=== PATIENT | female | born 1970 | race Caucasian/White ===

== ENCOUNTER 2019-08-11 03:57 | Observation (INO) | payer SELFPAY ==
[2019-08-11 04:22] LABS: Absolute Lymphocytes (CBC) 2.1 K/uL (0.7-4.9); Basophils % 0.8 % (0-1.3); Hematocrit 39.9 % (36.0-45.0); Lymphocytes % 14.7 % (15.3-44.8); MPV 8.5 fL (7.6-11.3); RBC Red Blood Cell Count 4.42 M/uL (3.86-4.86)
[2019-08-11] MEDS ORDERED: ONDANSETRON 4 MG/2 ML VIAL ONE ×3 (04:28→11:15)
[2019-08-11] MEDS ORDERED: KETOROLAC 30 MG/ML INJ ONE ×2 (04:28→11:15)
[2019-08-11] MEDS ORDERED: NA CHLORIDE 0.9% 1,000 ML ONE (04:28)
[2019-08-11 04:38] LABS: ALT/SGPT 23 U/L (12-78); AST/SGOT 15 U/L (15-37); Albumin 4.1 g/dL (3.4-5.0); Alkaline Phosphatase 152 U/L (45-117); BUN Blood Urea Nitrogen 11 mg/dL (7-18); Bicarbonate 27 mmol/L (21-32); Bilirubin Direct < 0.1 mg/dL (0-0.2); Bilirubin Total 0.4 mg/dL (0.2-1.0); Glucose Level 132 mg/dL (74-106); Potassium 3.8 mmol/L (3.5-5.1); Protein, Total 8.5 g/dL (6.4-8.2); Sodium Level 140 mmol/L (136-145)
[2019-08-11] MEDS ORDERED: FENTANYL CITR 100 MCG/2 ML ONE ×3 (05:26→11:11)
--- NOTE | 2019-08-11 07:18 | RAD REPORT ---
EXAM DESCRIPTION: CT - Abdomen Pelvis W Contrast - 08/11/2019 5:10 am CLINICAL HISTORY: Abdominal pain COMPARISON: none. TECHNIQUE: Computed axial tomography of the abdomen pelvis was obtained. 100 cc Isovue-300 was admin istered intravenously. Oral contrast was not requested which limits evaluation of bowel. All CT scans are performed using dose optimization technique as appropriate and may include automated exposure control or mA/KV adjustment according to patient size. FINDINGS: The liver contains a couple of tiny low-density lesions too small to characterize but prob ably cysts Spleen contains small subcentimeter low-density lesions. Pancreas, left adrenal and kidneys unremarkable. . 20 millimeter right adrenal lesion The gallbladder is distended containing calculi. One is lodged within the gallbladder neck. Gallbladd er wall probably is mildly thickened. There is no evidence of diverticulitis. Normal appendix. Hysterectomy IMPRESSION: Cholelithiasis with gallbladder distention. One stone is lodged within the gallbladder n stormy. Probable cholecystitis Multiple splenic lesions varying in size from a few millimeters to is 12 millimeters. These do not re present simple cysts. These may represent hemangiomas. Metastases can have this appearance as well bu t probably less likely. . Ultrasound is recommended. A 20 millimeter right adrenal lesion. Adenoma is considered most likely. A metastasis is another cons ideration. Nonemergent MRI usually can differentiate between the 2
[2019-08-11] MEDS ORDERED: PIPER/TAZO/NS 3.375gm 3.375 GM/100 ML BAG ONE (08:10)
--- NOTE | 2019-08-11 08:15 | ER ---
Nurse's Notes [facility] Name: Jennifer George Age: 48 yrs Sex: Female : 1970 Arrival Date: 08/11/2019 Time: 03:59 Bed 6 Private MD: Diagnosis: Abdominal tenderness;Cholelithiasis;Cholecystitis;Elevated white blood cell count Presentation: 08/10 04:06 Chief complaint: Patient states: Pt reports she started having right upper quadrant ea pain last night that radiated to back. Pt reports the pain worsened and feels like she is unable to pass gas. Coronavirus screen: Proceed with normal triage. Ebola Screen: No symptoms or risks identified at this time. Initial Sepsis Screen: Does the patient meet any 2 criteria? No. Patient's initial sepsis screen is negative. Does the patient have a suspected source of infection? No. Patient's initial sepsis screen is negative. Risk Assessment: Do you want to hurt yourself or someone else? Patient reports no desire to harm self or others. Onset of symptoms was August 11, 2019. 04:06 Method Of Arrival: Ambulatory ea 04:06 Acuity: SARABJIT 3 ea Triage Assessment: 04:10 General: Appears uncomfortable, Behavior is restless. Pain: Complains of pain in right ea upper quadrant. Neuro: Level of Consciousness is awake, alert, obeys commands, Oriented to person, place, time, situation. Cardiovascular: Patient's skin is warm and dry. Respiratory: Airway is patent Respiratory effort is even, unlabored, Respiratory pattern is regular, symmetrical. GI: Reports upper abdominal pain, bloating. 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 - Social history:: Smoking status: Patient denies any tobacco usage or history of. Screenin:08 Abuse screen: Denies threats or abuse. Nutritional screening: No deficits noted. ea Tuberculosis screening: No symptoms or risk factors identified. Fall Risk None identified. Assessment: 05:25 Reassessment: Patient and/or family updated on plan of care and expected duration. Pain rv level reassessed. Patient is alert, oriented x 3, equal unlabored respirations, skin warm/dry/pink. Patient denies pain at this time. Patient states feeling better. GI: Bowel sounds present X 4 quads. Abd is soft and non tender X 4 quads. 05:25 Reassessment: awaiting CT scan report. updated on the test results. rv 05:43 Reassessment: Patient and/or family updated on plan of care and expected duration. Pain ea level reassessed. Patient is alert, oriented x 3, equal unlabored respirations, skin warm/dry/pink. Pt reports she is feeling better. 06:02 Reassessment: hu from CT reports that technicians are working to get the reading for sg the CT scan, notified, pt updated on POC. 07:30 Reassessment: Patient appears in no apparent distress at this time. Patient and/or ph family updated on plan of care and expected duration. Pain level reassessed. Patient is alert, oriented x 3, equal unlabored respirations, skin warm/dry/pink. 08:58 Reassessment: Patient appears in no apparent distress at this time. Patient and/or ph family updated on plan of care and expected duration. Pain level reassessed. Patient is alert, oriented x 3, equal unlabored respirations, skin warm/dry/pink. 10:14 Reassessment: Patient appears in no apparent distress at this time. Patient and/or ph family updated on plan of care and expected duration. Pain level reassessed. Patient is alert, oriented x 3, equal unlabored respirations, skin warm/dry/pink. Report given to Brooke Cruz RN, pt taken to OR via wheelchair. Vital Signs: 04:06 BP 157 / 113; Pulse 101; Resp 20; Temp 98.9; Pulse Ox 98% on R/A; Weight 68.04 kg; ea Height 5 ft. 4 in. (162.56 cm); 05:25 BP 117 / 64; Pulse 90; Resp 16; Pulse Ox 94% ; Pain 0/10; rv 07:31 BP 110 / 76; Pulse 76; Resp 16 S; Pulse Ox 95% on R/A; em 08:52 BP 115 / 76; Pulse 81; Resp 18; Pulse Ox 98% on R/A; ph 10:15 BP 118 / 78; Pulse 84; Resp 18; Temp 98.0; Pulse Ox 99% on R/A; ph 04:06 Body Mass Index 25.75 (68.04 kg, 162.56 cm) ea ED Course: 03:59 Patient arrived in ED. ag3 03:59 Gonzalez Barnes MD is Attending Physician. kdr 04:00 Sebastian Sorensen, RN is Primary Nurse. rv 04:08 Triage completed. ea 04:09 Patient has correct armband on for positive identification. Bed in low position. Call ea light in reach. 04:09 Arm band placed on right wrist. Patient placed in an exam room, on a stretcher, on ea pulse oximetry. 04:17 Inserted saline lock: 20 gauge in right antecubital area, using aseptic technique. oe Blood collected. 05:10 CT Abd/Pelvis - IV Contrast Only In Process Unspecified. EDMS 07:53 Attending Physician role handed off by Gonzalez Barnes MD maty 07:53 Jose G Swift MD is Attending Physician. maty 08:14 Aiden Garcia MD is Hospitalizing Provider. maty 08:52 No provider procedures requiring assistance completed. Patient admitted, IV remains in ph place. Administered Medications: 04:26 Drug: NS 0.9% 1000 ml Route: IV; Rate: 1 bolus; Site: right antecubital; rv 07:15 Follow up: Response: No adverse reaction; IV Status: Completed infusion; IV Intake: ph 1000ml 04:26 Drug: TORadol - Ketorolac 15 mg Route: IVP; Site: right antecubital; rv 10:16 Follow up: Response: No adverse reaction ph 04:26 Drug: Zofran (Ondansetron) 4 mg Route: IVP; Site: right antecubital; rv 10:16 Follow up: Response: No adverse reaction ph 08:47 Drug: Zofran (Ondansetron) 4 mg Route: IVP; Site: right antecubital; ph 10:16 Follow up: Response: No adverse reaction ph 08:49 Drug: fentaNYL (PF) 50 mcg Route: IVP; Site: right antecubital; ph 10:16 Follow up: Response: No adverse reaction; Pain is decreased; RASS: Drowsy (-1) ph 08:51 Drug: Zosyn 3.375 grams Route: IVPB; Infused Over: 60 mins; Site: right antecubital; ph 09:55 Follow up: Response: No adverse reaction; IV Status: Completed infusion ph Intake: 07:15 IV: 1000ml; Total: 1000ml. ph Outcome: 08:15 Decision to Hospitalize by Provider. maty 10:15 Admitted to OR accompanied by nurse, via wheelchair, with chart. ph 10:15 Condition: stable 10:15 Instructed on the need for admit. 10:17 Patient left the ED. ph Signatures: Dispatcher [employer] EDKiel Addison, RN Jose G Russell MD MD cha Rittger, Kevin, MD MD kdr Munoz, Edgar RN Jessica Handy RN Waldemar Stark ph, Elena, RN Sebastian Harris ea, RN Ananya Roberts
--- NOTE | 2019-08-11 08:16 | EDPHYS ---
Physician Documentation [facility] Name: Jennifer George Age: 48 yrs Sex: Female : 1970 Arrival Date: 08/11/2019 Time: 03:59 Bed 6 Private MD: ED Physician Jose G Swift HPI: 08/10 05:09 This 48 yrs old Female presents to ER via Ambulatory with complaints of kdr Abdominal Pain. 05:09 The patient presents with abdominal pain in the epigastric area, in the upper abdomen. kdr Onset: The symptoms/episode began/occurred gradually, 1 month(s) ago. The symptoms radiate to Associated signs and symptoms: Pertinent positives: nausea, Pertinent negatives: anorexia, blood in stools, palpitations, shortness of breath, vaginal discharge, vomiting, vomiting blood. The symptoms are described as achy, burning, crampy, intermittent, vague, waxing/waning. Severity of pain: At its worst the pain was moderate in the emergency department the pain has improved mildly. The patient has not experienced similar symptoms in the past. The patient has not recently seen a physician. 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 - Social history:: Smoking status: Patient denies any tobacco usage or history of. ROS: 05:09 Constitutional: Negative for fever, chills, and weight loss, Eyes: Negative for injury, kdr pain, redness, and discharge, ENT: Negative for injury, pain, and discharge, Neck: Negative for injury, pain, and swelling, Cardiovascular: Negative for chest pain, palpitations, and edema, Respiratory: Negative for shortness of breath, cough, wheezing, and pleuritic chest pain, Back: Negative for injury and pain, : Negative for injury, bleeding, discharge, and swelling, MS/Extremity: Negative for injury and deformity, Skin: Negative for injury, rash, and discoloration, Neuro: Negative for headache, weakness, numbness, tingling, and seizure activity. Psych: Negative for depression, anxiety, suicide ideation, homicidal ideation, and hallucinations, Allergy/Immunology: Negative for hives, rash, and allergies, Endocrine: Negative for neck swelling, polydipsia, polyuria, polyphagia, and marked weight changes, Hematologic/Lymphatic: Negative for swollen nodes, abnormal bleeding, and unusual bruising. 05:09 Respiratory: Positive for The patient is chronically congested and feels that this has not changes for the better or worse.. Exam: 05:09 Constitutional: This is a well developed, well nourished patient who is awake, alert, kdr and in no acute distress. Head/Face: Normocephalic, atraumatic. Eyes: Pupils equal round and reactive to light, extra-ocular motions intact. Lids and lashes normal. Conjunctiva and sclera are non-icteric and not injected. Cornea within normal limits. Periorbital areas with no swelling, redness, or edema. Neck: Trachea midline, no thyromegaly or masses palpated, and no cervical lymphadenopathy. Supple, full range of motion without nuchal rigidity, or vertebral point tenderness. No Meningismus. Chest/axilla: Normal chest wall appearance and motion. Nontender with no deformity. No lesions are appreciated. Cardiovascular: Regular rate and rhythm with a normal S1 and S2. No gallops, murmurs, or rubs. Normal PMI, no JVD. No pulse deficits. Respiratory: Lungs have equal breath sounds bilaterally, clear to auscultation and percussion. No rales, rhonchi or wheezes noted. No increased work of breathing, no retractions or nasal flaring. Back: No spinal tenderness. No costovertebral tenderness. Full range of motion. Skin: Warm, dry with normal turgor. Normal color with no rashes, no lesions, and no evidence of cellulitis. MS/ Extremity: Pulses equal, no cyanosis. Neurovascular intact. Full, normal range of motion. Neuro: Awake and alert, GCS 15, oriented to person, place, time, and situation. Cranial nerves II-XII grossly intact. Motor strength 5/5 in all extremities. Sensory grossly intact. Cerebellar exam normal. Normal gait. Psych: Awake, alert, with orientation to person, place and time. Behavior, mood, and affect are within normal limits. 05:09 Abdomen/GI: Inspection: abdomen appears normal, Bowel sounds: active, diminished, in all quadrants, Palpation: soft, mild abdominal tenderness, in the epigastric area, right upper quadrant and left upper quadrant, rebound tenderness, voluntary guarding, involuntary guarding. 06:14 ECG was reviewed by the Attending Physician. [facility] Vital Signs: 04:06 BP 157 / 113; Pulse 101; Resp 20; Temp 98.9; Pulse Ox 98% on R/A; Weight 68.04 kg; ea Height 5 ft. 4 in. (162.56 cm); 05:25 BP 117 / 64; Pulse 90; Resp 16; Pulse Ox 94% ; Pain 0/10; rv 07:31 BP 110 / 76; Pulse 76; Resp 16 S; Pulse Ox 95% on R/A; em 08:52 BP 115 / 76; Pulse 81; Resp 18; Pulse Ox 98% on R/A; ph 10:15 BP 118 / 78; Pulse 84; Resp 18; Temp 98.0; Pulse Ox 99% on R/A; ph 04:06 Body Mass Index 25.75 (68.04 kg, 162.56 cm) MDM: 07:54 Patient medically screened. [facility] 08:12 Data reviewed: vital signs, nurses notes, lab test result(s), EKG, radiologic studies, maty plain films. 08/10 04:00 Order name: Basic Metabolic Panel; Complete Time: 05:18 kdr 08/10 04:00 Order name: CBC with Diff; Complete Time: 05:18 [facility] 08/10 04:00 Order name: Creatinine for Radiology; Complete Time: 05:18 kdr 08/10 04:00 Order name: Hepatic Function; Complete Time: 05:18 [facility] 08/10 04:20 Order name: Lipase; Complete Time: 05:18 [facility] 08/10 05:18 Order name: Troponin (emerg Dept Use Only); Complete Time: 06:14 kdr 08/10 04:20 Order name: CT Abd/Pelvis - IV Contrast Only; Complete Time: 07:54 [facility] 08/10 08:22 Order name: Urine Dipstick--Ancillary (enter results) eb 08/10 04:00 Order name: IV Saline Lock; Complete Time: 04:13 kdr 08/10 04:00 Order name: Labs collected and sent; Complete Time: 04:13 [facility] 08/10 05:18 Order name: EKG Strip; Complete Time: 05:37 [facility] 08/10 07:55 Order name: NPO; Complete Time: 07:56 [facility] 08/10 08:20 Order name: Urine Dipstick-Ancillary (obtain specimen); Complete Time: 08:20 em EC:14 Rate is 83 beats/min. Rhythm is regular, Normal Sinus Rhythm with No ectopy. QRS [place] kdr is Normal. AL interval is normal. QRS interval is normal. QT interval is normal. Clinical impression: NSR w/ Non-specific ST/T Changes. Administered Medications: 04: Drug: NS 0.9% 1000 ml Route: IV; Rate: 1 bolus; Site: right antecubital; rv 07:15 Follow up: Response: No adverse reaction; IV Status: Completed infusion; IV Intake: ph 1000ml 04:26 Drug: TORadol - Ketorolac 15 mg Route: IVP; Site: right antecubital; rv 10:16 Follow up: Response: No adverse reaction ph 04:26 Drug: Zofran (Ondansetron) 4 mg Route: IVP; Site: right antecubital; rv 10:16 Follow up: Response: No adverse reaction ph 08:47 Drug: Zofran (Ondansetron) 4 mg Route: IVP; Site: right antecubital; ph 10:16 Follow up: Response: No adverse reaction ph 08:49 Drug: fentaNYL (PF) 50 mcg Route: IVP; Site: right antecubital; ph 10:16 Follow up: Response: No adverse reaction; Pain is decreased; RASS: Drowsy (-1) ph 08:51 Drug: Zosyn 3.375 grams Route: IVPB; Infused Over: 60 mins; Site: right antecubital; ph 09:55 Follow up: Response: No adverse reaction; IV Status: Completed infusion ph Disposition: 08/11/19 08:15 Hospitalization ordered by Aiden Garcia for Observation. Preliminary diagnosis are Abdominal tenderness, Cholelithiasis, Cholecystitis, Elevated white blood cell count. - Bed requested for Telemetry/MedSurg (observation). - Status is Observation. ph - Condition is Stable. - Problem is new. - Symptoms have improved. Signatures: Dispatcher [employer] oJse G Cabral MD MD cha Rittger, Kevin, MD MD kdr Munoz, Edgar, RN RN Jessica Bailey RN RN Trixie Webster, RN RN Sebastian Andrews, RN RN rv Corrections: (The following items were deleted from the chart) 10:17 08:15 Hospitalization Ordered by Aiden Garcia MD for Observation. Preliminary ph diagnosis is Abdominal tenderness; Cholelithiasis; Cholecystitis; Elevated white blood cell count. Bed requested for Telemetry/MedSurg (observation). Status is Observation. Condition is Stable. Problem is new. Symptoms have improved. maty
[2019-08-11 08:31] LABS: Urine Blood TRACE (NEG); Urine Glucose NEGATIVE (NEG); Urine Protein NEGATIVE (NEG); Urine Specific Gravity 1.015 (1.005-1.030); Urine pH 5.5 (5.0-7.0)
[2019-08-11] MEDS ORDERED: D5 0.45 NS 1,000 ML IV SCH (10:04)
[2019-08-11] MEDS ORDERED: ONDANSETRON 4 MG/2 ML VIAL IV PRN (10:04)
[2019-08-11] MEDS ORDERED: MORPHINE 4 MG/ML SYR IV PRN ×2 (10:04→13:09)
[2019-08-11] MEDS ORDERED: ACETAMINOPHEN 325 MG TABLET PO PRN (10:12)
[2019-08-11] MEDS ORDERED: Ringers Lactate 1,000 ML IV ONE (10:26)
[2019-08-11] MEDS ORDERED: propofoL 200 MG/20 ML VIAL IV ONE (11:11)
[2019-08-11] MEDS ORDERED: LIDOCAINE 2% MPF 5 ML VIAL ONE (11:12)
[2019-08-11] MEDS ORDERED: ROCURONIUM 50 MG/5 ML VIAL IV ONE (11:12)
[2019-08-11] MEDS ORDERED: dexAMETHasone 10 MG/ML VIAL ONE (11:15)
--- NOTE | 2019-08-11 11:20 | P.HP ---
Date of Service: 08/11/19 PC: HPC: This 48-year-old female presents emergency room with severe right upper quadrant abdominal pain for diagnosis and treatment. PMH: Patient has been experiencing severe right upper quadrant abdominal pain, radiating into her back, for the last 24 hr. States that over the last 5 days or so she has not felt well. Has noticed that over the last year she has been having fatty food intolerance. PSHx: Previous hysterectomy, ACL repair SOC: No known allergies SYS REVIEW: No cough, wheeze, shortness of breath. No chest pain or palpitations. Denies any urinary complaints O/E awake alert uncomfortable HEENT: Not clinically jaundiced Chest: Chest movement equal bilaterally ABD: Tender in the right upper quadrant LOCO: Intact DATA: Elevated white cell count, CT scan demonstrates a large stone in the gallbladder IMPRESSION: Acute on chronic cholecystitis with cholelithiasis, biliary colic PLAN: I will take her to the operating room for laparoscopic possible open cholecystectomy with cholangiogram. The risks of this procedure have been discussed. The possibility of bleeding, infection, injury to bile ducts blood vessels intestines was described. The possible need for an open and/or further surgeries and procedures was discussed. She understands and wants to proceed.
[2019-08-11] MEDS ORDERED: SUCCINYLCHOLINE 20 MG/ML (10 ML) IV ONE (11:22)
[2019-08-11] MEDS ORDERED: NA CIT/CITRIC AC 30 ML ORAL UDC ONE (11:26)
[2019-08-11] MEDS ORDERED: NEOSTIGMINE 1 MG/ML -5 ML ONE (12:17)
[2019-08-11] MEDS ORDERED: GLYCOPYRROLATE 0.2 MG/ML SYR ONE ×2 (12:17)
--- NOTE | 2019-08-11 13:07 | P.OP ---
Preoperative diagnosis: Acute cholecystitis with cholelithiasis Postoperative diagnosis: Same with hydrops of the gallbladder Primary procedure: Laparoscopic cholecystectomy Secondary procedure: Cholangiogram Anesthesia: General Estimated blood loss: Less than 10 cc Specimen: 1 gallbladder and contents Operative Technique: The patient brought to the operating room placed supine on the table. After the induction of adequate general endotracheal anesthesia, the area of the abdomen was prepped with a DuraPrep solution, and she was draped in usual aseptic manner. A subumbilical incision was made. This brought down through the skin and subcutaneous tissue. The Visiport was used to enter the peritoneal cavity and created pneumoperitoneum to approximately 12 mm of mercury. Under direct vision and a 5 mm trocar was placed in the upper midline, and 2 other 5 mm trocars in the right lateral side of the abdominal wall. We were now able to visualize the right upper quadrant. We could see a markedly distended gallbladder. It shows signs of erythema and edema A grasper was placed on the fundus. Adhesions of the omentum were taken off the serosal surface. A another grasp was now placed down by Jensen's pouch. The patient's head was elevated and she was rolled to the left side. Even then we could see this large floppy redundant and inflamed gallbladder it was necessary to reset our graspers. Another 1 was placed down just below the midbody of the gallbladder. We repositioned our distal trocar around Jensen's pouch. We could see a large stone stuck just adjacent to the neck gallbladder. Gentle dissection was now done to isolate the cystic duct which was noted to be about a mm in size. A clip was placed between the gallbladder and the cystic duct. An opening was made into the cystic duct through which we obtained an intraoperative cholangiogram. The cholangiogram showed good flow contrast into the duodenum No filling defects were noted. We had to place the patient back in the neutral position to obtain and the demonstration of the upper radicals. No gross pathology was noted there either. At this point the patient was returned to the gallbladder position. Clips were placed on the distal portion of the cystic duct. Having secured it it was now transected with the scissors. The artery was identified clipped and divided in the usual manner. The gallbladder was then dissected free from the liver bed. There was noted be quite amount of the mouth in the gallbladder and the liver itself. Bleeding was controlled using electro cautery. The gallbladder having now been detached was placed into an Endo-Catch and brought out through the umbilical trocar site. Attention was turned back towards the peritoneal cavity. Irrigating fluid was aspirated from the peritoneal cavity. The area was irrigated until the effluent was clear. At this point the umbilical trocar site was approximated using the Endo Close an absorbable suture. The suture was tied, the pneumoperitoneum collapse, and the trocars removed. [place] were then applied to the skin. At the end of the procedure she was in a stable condition when sent to the recovery room. Needle sponge instrument count were correct. No drains were placed. Complications: None Transferred to: Recovery Room Condition: Good
[2019-08-11] MEDS ORDERED: HYDROCODONE/APAP 7.5/325 MG TAB PO PRN (13:09)
[2019-08-11] MEDS: HYDROMORPHONE HCL 1 MG/ML INJ ONE ×2 (13:29→13:35)
[2019-08-11 13:40] VITALS: O2SAT 100
--- NOTE | 2019-08-11 14:10 | RAD REPORT ---
EXAM DESCRIPTION: RADCholangiogram Oper-Xray Or08/11/2019 1:58 pm CLINICAL HISTORY: Abdominal pain FINDINGS: The examination was performed by Dr. Garcia. The cystic duct was cannulated and contrast administered. Contrast flowed into the duodenum. A filling defect within the common bile duct is not seen. Fluoroscopy time 0.8 minutes Six fluoroscopic films obtained
[2019-08-11 14:12] VITALS: BMI 27.4
[2019-08-11 17:46] VITALS: BP 113/56; TEMP 98.2
--- NOTE | 2019-08-13 20:17 | EKG ---
Test Date: 2019-08-11 Test Time: 05:32:32 Promotions Team Leader: ANGELICA MEASUREMENT RESULTS: Intervals: Rate: 83 UT: 144 QRSD: 82 QT: 388 QTc: 455 [place]: P: 21 UT: 144 QRS: 30 T: 42 INTERPRETIVE STATEMENTS: Normal sinus rhythm Anteroseptal infarct, age undetermined Abnormal ECG Compared to ECG 11/23/2005 09:02:22 Myocardial infarct finding now present Electronically Signed On 08-13-19 20:11:32 CDT by Quang Rodríguez
== END 2019-08-11 16:36 | disposition home health service (06) ==
LOC: ER 03:57 → ERHOLD 08:21 → 2ND 11:10
PROVIDERS: ADMIT Surgery; ATTEND Surgery
PROC: BF13YZZ Fluoroscopy of Gallbladder and Bile Ducts using Other Contrast (ICD-10-PCS; 2019-08-11)
PROC: 0FT44ZZ Resection of Gallbladder, Percutaneous Endoscopic Approach (ICD-10-PCS; principal; 2019-08-11 11:00)
DX: K80.00 Calculus of gallbladder with acute cholecystitis without obstruction (principal)
CPT/HCPCS: 36415; 74177; 74300; 80048; 80076; 81003; 83690; 84484; 85025; 88304; 93005; 96361; 96365; 96375; 99285; G0378; J0330; J1100; J1170; J2405; J2543; J2704; J2710; J3010; J7030; J7120; J7799; Q9967